=== PATIENT | male | born 2000 | race Caucasian/White ===

== ENCOUNTER 2024-06-30 06:13 | Emergency (ER) | payer SELFPAY ==
[~2024-06-30] VITALS: Ht 175.3 cm; Wt 69.0 kg
[2024-06-30 06:18] VITALS: BP 127/82; PULSE 82; RESP 20; TEMP 98.3; O2SAT 100
== END 2024-06-30 09:28 | disposition left against medical advice (07) ==
LOC: ER 06:25
DX: R51.9 Headache, unspecified (principal); Z53.21 Procedure and treatment not carried out due to patient leaving prior to being seen by health care provider